=== PATIENT | male | born 1970 | race Caucasian/White ===

== ENCOUNTER 2024-11-26 14:12 | Emergency (ER) | payer OTHER ==
[~2024-11-26] VITALS: Ht 167.6 cm; Wt 68.0 kg
[2024-11-26] MEDS ORDERED: SULF1TAB48 PO (15:59)
[2024-11-26] MEDS ORDERED: NABU-140 PO (15:59)
[2024-11-26] MEDS ORDERED: METF-440 PO (15:59)
[2024-11-26 16:27] VITALS: BP 129/81; O2SAT 100
== END 2024-11-26 16:00 | disposition home or self-care (01) ==
LOC: ER 14:12
DX: M54.17 Radiculopathy, lumbosacral region (principal); A49.01 Methicillin susceptible Staphylococcus aureus infection, unspecified site; E11.9 Type 2 diabetes mellitus without complications; F17.210 Nicotine dependence, cigarettes, uncomplicated; I10 Essential (primary) hypertension; Z79.84 Long term (current) use of oral hypoglycemic drugs
CPT/HCPCS: A4606; A4663

== ENCOUNTER 2025-01-02 08:16 | Emergency (ER) | payer OTHER ==
[~2025-01-02] VITALS: Ht 167.6 cm; Wt 68.0 kg
[~2025-01-02 08:16] MED LIST: METF-440 PO; NABU-140 PO; SULF1TAB48 PO
[2025-01-02] MEDS ORDERED: CEPH500C2 PO (08:56)
[2025-01-02] MEDS ORDERED: CEphaleXIN 500 MG CAPSULE ONE (09:02)
[2025-01-02] MEDS ORDERED: SULFAMETH/TRIMETH 800/160 MG TABLET ONE (09:02)
[2025-01-02] MEDS: CEphaleXIN 500 MG CAPSULE PO ONE (09:07)
[2025-01-02] MEDS: SULFAMETH/TRIMETH 800/160 MG TABLET PO ONE (09:07)
[2025-01-02 09:09] VITALS: BP 133/93; O2SAT 99
== END 2025-01-02 09:10 | disposition home or self-care (01) ==
LOC: ER 08:16
DX: L30.9 Dermatitis, unspecified (principal); B95.61 Methicillin susceptible Staphylococcus aureus infection as the cause of diseases classified elsewhere; E11.9 Type 2 diabetes mellitus without complications; F17.210 Nicotine dependence, cigarettes, uncomplicated; Z79.84 Long term (current) use of oral hypoglycemic drugs
CPT/HCPCS: A4606; A4663

== ENCOUNTER 2025-03-25 02:14 | Emergency (ER) | payer OTHER ==
[~2025-03-25] VITALS: Ht 167.6 cm; Wt 70.3 kg
[~2025-03-25 02:14] MED LIST changes: +CEPH500C2 PO
[2025-03-25 02:58] LABS: PLATELET COUNT (AUTO) 298 K/uL (152-348); RED BLOOD CELL COUNT(AUTO) 4.80 MIL/uL (4.06-5.63); RED CELL DISTRIBUTION WIDTH 13.6 % (12.1-16.2); WHITE BLOOD COUNT (AUTO) 8.9 K/uL (3.6-10.2)
[2025-03-25 03:07] LABS: CREATININE 1.0 mg/dL (0.6-1.3); SODIUM SERUM 142.0 mmol/L (136-145); UREA NITROGEN, BLOOD 28.0 mg/dL (7-18)
[2025-03-25 03:12] LABS: *BILIRUBIN,URIN 1+ (NEGATIVE); *BLOOD, URINE NEGATIVE (NEGATIVE); *CLARITY,URINE SLIGHTLY CLOUDY (CLEAR); *COLOR,URINE DARK YELLOW (YELLOW); *KETONES,URINE 1+ (NEGATIVE); *PROTEIN,URINE 1+ (NEGATIVE); *UROBILINOGEN,URINE 2.0 E.U./dl (NORMAL); LEUKOCYTE ESTERASE ,URINE NEGATIVE (NEGATIVE); NITRITE, URINE NEGATIVE (NEGATIVE); UGLUCOSE NEGATIVE (NEGATIVE)
[2025-03-25 03:13] LABS: ASPARTATE AMINOTRANSFERASE 27.0 U/L (15-37); TOTAL PROTEIN, SERUM 7.4 g/dL (6.4-8.2)
[2025-03-25 03:25] LABS: *AMPHETAMINE, URINE POSITIVE (NEGATIVE); *BARBITURATE, URINE NEGATIVE (NEGATIVE); *BENZODIAZEPINE, URINE NEGATIVE (NEGATIVE); *CANNABINOID, URINE POSITIVE (NEGATIVE); *COCCAINE, URINE NEGATIVE (NEGATIVE); *OPIATE, URINE NEGATIVE (NEGATIVE); *PHENCYCLIDINE SCREEN,URINE POSITIVE (NEGATIVE); FENTANYL, URINE POSITIVE (NEGATIVE)
[2025-03-25 03:32] LABS: CALCIUM OXALATE CRYSTALS,UR FEW /HPF (NONE SEEN)
[2025-03-25 04:01] VITALS: BP 148/102
[2025-03-25 05:48] VITALS: BP 140/99; TEMP 98.1; O2SAT 99
== END 2025-03-25 05:50 | disposition left against medical advice (07) ==
LOC: ER 02:26
DX: R07.89 Other chest pain (principal); R20.0 Anesthesia of skin; R06.02 Shortness of breath; E11.9 Type 2 diabetes mellitus without complications; F17.200 Nicotine dependence, unspecified, uncomplicated; Z79.84 Long term (current) use of oral hypoglycemic drugs; Z88.7 Allergy status to serum and vaccine; Z79.899 Other long term (current) drug therapy
CPT/HCPCS: 36415; 71045; 84484; 85025; A4606; A4663

== ENCOUNTER 2025-04-15 16:45 | Emergency (ER) | payer OTHER ==
[~2025-04-15] VITALS: Ht 167.6 cm; Wt 68.0 kg
[2025-04-15 19:18] VITALS: BP 122/78
[2025-04-15] MEDS ORDERED: SULFAMETH/TRIMETH 800/160 MG TABLET ONE (20:36)
[2025-04-15] MEDS: SULFAMETH/TRIMETH 800/160 MG TABLET PO ONE (20:37)
[2025-04-15] MEDS ORDERED: CEPH500C2 PO (21:40)
[2025-04-15] MEDS ORDERED: SULF1TAB48 PO (21:40)
[2025-04-15 21:45] VITALS: BP 128/77; TEMP 98; O2SAT 98
== END 2025-04-15 21:45 | disposition home or self-care (01) ==
LOC: ER 16:45
DX: L03.115 Cellulitis of right lower limb (principal); L03.011 Cellulitis of right finger; E11.9 Type 2 diabetes mellitus without complications; F17.200 Nicotine dependence, unspecified, uncomplicated; Z79.84 Long term (current) use of oral hypoglycemic drugs; Z88.7 Allergy status to serum and vaccine; X58.XXXA Exposure to other specified factors, initial encounter; Y93.89 Activity, other specified; Y92.89 Other specified places as the place of occurrence of the external cause; Y99.8 Other external cause status
CPT/HCPCS: A4606; A4663